=== PATIENT | female | born 1935 | race Caucasian/White ===

== ENCOUNTER → 2021-06-07 | Day surgery (SDC) | payer MEDICARE, BC ==
[2021-06-07] MEDS: Brimonidine 0.2% Ophth Soln 5 ML Bottle EYEBOTH SCH ×2 (11:28→11:50)
[2021-06-07] MEDS: Phenylephrine 2.5% Ophth Soln 2 ML Bot EYEBOTH SCH ×3 (11:32→11:44)
[2021-06-07] MEDS: Tropicamide 1% Ophth Soln 15 ML Bottle EYEBOTH SCH ×3 (11:35→11:48)
== END ==
LOC: JD.SDS 10:14
PROVIDERS: ATTEND Ophthalmology
DX: H26.493 Other secondary cataract, bilateral (principal)